=== PATIENT | female | born 1955 | race Caucasian/White ===

== ENCOUNTER 2023-03-09 11:53 | Outpatient (REF) | payer OTHER, SELFPAY ==
[2023-03-09 13:20] LABS: MANUAL DIFF FLAG NO
[2023-03-09 13:42] LABS: Basophils Absolute Auto 0.1 X10*3/uL (0.0-0.2); Basophils Percent Auto 0.8 % (0-2); Eosinophils Absolute Auto 0.3 X10*3/uL (0.0-0.4); Eosinophils Percent Auto 5.1 % (0-4); Hemoglobin 12.8 g/dl (12.0-16.0); Imm Gran Abs Auto 0.02 X10*3/uL (0.00-0.03); Imm Gran Pct Auto 0.3 % (0.0-0.4); Mean Corpuscular Hemoglobin 28.4 pg (27.0-33.0); Mean Corpuscular Volume 88.7 fL (80.0-98.0); Mean Platelet Volume 10.5 fL (9.4-12.3); Monocytes Absolute Auto 0.4 X10*3/uL (0.1-1.2); Neutrophils Absolute Auto 3.1 x10*3/uL (2.0-8.3); Neutrophils Percent Auto 52.8 % (45-73); Platelet Count 374 X10*3/uL (160-400); Red Blood Count 4.51 X10*6/uL (4.20-5.50); Red Cell Distribution Width 13.5 % (11.0-16.0); White Blood Count 5.9 X10*3/uL (4.8-10.8)
[2023-03-09 14:42] LABS: Erythrocyte Sedimentation Rate 5 MM/HR (0-20)
[2023-03-09 14:51] LABS: Alanine Aminotransferase 31 U/L (0-31); Albumin Level 4.4 g/dL (3.5-5.0); Alkaline Phosphatase 57 U/L (39-117); Anion Gap 13 (12-20); Aspartate Amino Transferase 24 U/L (5-31); Bilirubin Total 0.6 mg/dL (0.0-1.0); Blood Urea Nitrogen 20 mg/dL (9-16); Calcium 9.6 mg/dL (8.4-10.2); Carbon Dioxide 23 mmol/L (22-29); Chloride 107 mmol/L (96-108); Estimated Glomerular Filt Rate > 60; Glucose Random 97 mg/dL (60-115); Iron 135 mcg/dL (30-160); Percent Iron Saturation 50 % (15-50); Potassium 4.2 mmol/L (3.3-5.1); Sodium 139 mmol/L (135-145); Total Iron Binding Capacity 272 mcg/dL (228-428); Total Protein 7.2 g/dL (6.5-8.0); Unsaturated Iron Binding 137 ug/dL
[2023-03-09 14:56] LABS: Ferritin 240 ng/mL (10-250); Vitamin D 25-OH Total 65.6 ng/mL (>30)
[2023-03-09 14:58] LABS: Vitamin B12 1252 pg/mL (200-900)
== END 2023-03-09 11:54 | disposition home or self-care (01) ==
LOC: HO.MANLDS 11:53
PROVIDERS: Visit Provider Internal Medicine
DX: R77.8 Other specified abnormalities of plasma proteins (principal); R10.9 Unspecified abdominal pain; E55.9 Vitamin D deficiency, unspecified; E61.1 Iron deficiency
CPT/HCPCS: 36415; 80053; 82306; 82607; 82728; 83540; 85025; 85652; 86140

== ENCOUNTER 2024-05-23 08:26 | Outpatient (REF) | payer OTHER, MEDICARE, SELFPAY ==
--- OUTSIDE RECORDS SUMMARY | 2024-05-23 08:45 | XMS_ITS | Continuity of Care Document ---
Author Organization [facility], [facility] Address [address] [place] [address] Assessment No assessment recorded. Plan of Treatment Reminders Order Date Submit Date Provider Last Modified By Organization Details Last Modified Time Details Appointments FOLLOW UP 15 2024 11:30A M DR CHEN Not available Not available Not available ANNUAL EXAM 2024 09:00A M DR CHEN Not available Not available Not available Lab CRP, high sensitivi ty, serum or plasma 2023 [facility], [address] [place] [address], [id number], 04/18/2024 11:46:45 9p21 chromosom e deletion, FISH, blood or tissue 2023 [facility], [address] [place] [address], [id number], 04/18/2024 11:46:45 lipoprote in-associ ated phospholi pase A2 (pla2), serum 2023 [facility], [address] [place] [address], [id number], 04/18/2024 11:46:45 CMP, serum or plasma 2023 024 [facility], [address] [place] [address], [id number], 04/18/2024 11:46:45 CBC w/ auto diff 2023 [facility], [address] [place] [address], [place], [address], 04/18/2024 11:46:45 lipid panel, blood 2023 [facility], [address] [place] [address], [id number], 04/18/2024 11:46:45 vitamin D, 25-hydrox y, total, serum 2023 [facility], [address] [place] [address], [id number], 04/18/2024 11:46:45 Referral sleep medicine referral 2023 [facility], [address] [place], [address], 05/23/2024 08:41:54 Procedures None recorded. Surgeries None recorded. Imaging bone density 2023 [facility], [address] [place], [address], 05/02/2024 08:11:55 CT, heart, w/o contrast, w/ coronary calcium score 2023 [facility], [address] [place], [address], 04/29/2024 11:06:46 Medication Orders None recorded. Patient TargetsNo targets recorded. Patient Instructions Encounter Date Encounter Id Patient Instructions Last Modified By Organization Details Last Modified Time 04/18/2024 [id number] sleep apnea: car e instructions Not available 04/18/2024 11:44:41 dizziness: care instructions Not available 04/18/2024 11:46:41 Reason for Referral Sleep Medicine Referral for Sleep apnea Referring Physician: Hunter Chen, Internal Medicine, Encounter Date: 04/18/2024 Results Created Date Observation Date Name Description Value Unit Range Abnormal Flag Note LastModifiedBy Organization Detail LastModifiedTime 05/05/20 24 05/05/2024 CT, heart , w/o contr ast, w/ coron elle calci um score No observ ation record ed. [email or web address] [facility] [address], [place], [address], 05/06/2024 09:47:34 Result Notes None recorded. Problems Name Problem SNOMED Code Status Onset Date Resolution Date Notes Provider Name and Address Organization Details Recorded Time Impaired fasting glycemia 712850576 Active 2017 DEBORAH Sood [address] [place], [address], [facility] 8 15:14:06 Serum ferritin above referenc e range 859880695 Active 2022 Hunter Chen DO [address] [place] [address], [phone], [facility] 3 16:04:57 Abdomina l pain 13894813 Active 2022 Hunter Chen, DO [address] [place] [address], [phone], [facility] 3 16:06:34 Vitamin D deficien cy 95923858 Active 2022 Hunter Chen DO [address] [place] [address], [id number], [facility] 3 16:07:10 Lumbar spondylo sis 061792384 Active 2022 Hunter Chen DO [address] [place] [address], [id number], [facility] 3 16:15:11 Weakness of left lower limb Active 2023 Hunter Chen DO [address] [place] [address], [phone], [facility] 4 10:39:38 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 70446140001 4105 Active 2023 Hunter Chen, DO [address] [place], [address], [facility] Internal [facility] 4 22:18:20 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 Catia dickson [facility] 8 16:33:18 Hypochol esterole nicola 08984973 Active 2017 Catia dickson [facility] 8 16:33:27 Acute sinusiti s 76162655 Active 2023 JORDAN LOUIS [address] [place], [address], [facility] 4 12:23:15 Hypercho lesterol emia 25456076 Active 2023 Hunter Chen DO [address] [place] [address], [phone], [facility] 4 11:33:12 Sleep apnea 79756653 Active 2023 Hunter Chen DO [address] [place] [address], [phone], [facility] 4 11:44:00 Dizzines s 701568978 Active 2023 Hunter Chen DO [address] [place] [address], [phone], [facility] 4 11:45:48 Problem Notes None recorded. Procedures Surgical History Date Name Laterality Status Provider Name and Address Organization Details Recorded Time 09/16/19 13 Date of Last Pap Smear completed Catia Dozier [facility] 03/21/2019 08:21:49 Breast Biopsy completed Catia Dozier [facility] 03/21/2019 08:16:53 Cataract Surgery completed Catia Betts [facility] 03/21/2019 08:17:36 laser procedure completed Catia Dozier [facility] 03/21/2019 08:18:17 Tonsillectomy completed Catia Dozier [place] [facility] 03/21/2019 08:18:34 Imaging Results None recorded. Procedure Notes None recorded. Medical Equipment None Reported. Allergies No known drug allergies Medications Name Sig Start Date Stop Date Status Note LastModified by Organization Details LastModified Time cyclobenz aprine 10 mg tablet TAKE 1 TABLET BY MOUTH TWICE A DAY NEEDED 10/17 completed Not Available Not Available Not Available amoxicill in 500 mg capsule 04/04 completed Not Available Not Available Not Available azithromy olamide 250 mg tablet TAKE 2 TABLETS BY MOUTH TODAY, THEN TAKE 1 TABLET DAILY FOR 4 DAYS DIRECTED 04/18 completed Not Available Not Available Not Available hydrocodo ne 5 mg-acetam inophen 325 mg tablet 04/04 completed Not Available Not Available Not Available prednison e 20 mg tablet 03/21 completed Not Available Not Available Not Available aspirin 81 mg tablet,de layed release Take 1 tablet every day by oral route. 07/31 completed Not Available Not Available Not Available oxycodone -acetamin ophen 5 mg-325 mg tablet 09/29 completed Not Available Not Available Not Available prednisol one acetate 1 % eye drops,[facility] pension 08/28 completed Not Available Not Available Not Available Vitamin C 1,000 mg tablet Take 2 tablets every day by oral route. active Not Available Not Available No t Available lorazepam 0.5 mg tablet 04/04 completed Not Available Not Available Not Available benzonata te 100 mg capsule TAKE 1 CAPSULE BY MOUTH 3 TIMES A DAY NEEDED. 04/18 completed Not Available Not Available Not Available amoxicill in 250 mg capsule 09/29 completed Not Available Not Available Not Available lisinopri l 5 mg tablet TAKE 1 TABLET BY MOUTH EVERY DAY 2023 active Not Available Not Available Not Avai lable methylpre dnisolone 4 mg tablets in a dose pack TAKE 6 TABLETS ON DAY 1 DIRECTED ON PACKAGE AND DECREASE BY 1 TAB EACH DAY FOR A TOTAL OF 6 DAYS 04/18 completed Not Available Not Available Not Available diazepam 5 mg tablet TAKE 1 TABLET BY MOUTH 1/2 HOUR PRIOR TO MRI 10/17 completed Not Available Not Available Not Available rosuvasta tin 5 mg tablet Take 1 tablet every day by oral route for 90 days. 03/21 completed Not Available Not Available Not Available chlorhexi dine gluconate 0.12 % mouthwash 09/29 completed Not Available Not Available Not Available magnesium 400 mg 09/29 completed Not Available Not Available Not Available calcium 900 mg qd, magnesiu m, zinc,wit h d 10/15 completed Not Available Not Available Not Available hawthorn qd 09/29 completed Not Available Not Available Not Available multivita min active Melaluca brand Not Available Not Available Not Available Elderberr y drink once a day 10/17 completed Not Available Not Available Not Available GaviLyte- G 236 gram-22.7 4 gram-6.74 gram-5.86 gram oral solution 09/29 completed Not Available Not Available Not Available red yeast rice active Not Available Not Available Not Available Flowflex COVID-19 Antigen Home Test kit 10/17 completed Not Available Not Available Not Available omega 3 1,000 mg-dha 250 mg-epa 750 mg/5 mL oral liquid Take by oral route. active Not Available Not Available No t Available beta-gluc an active Not Available Not Available Not Available Vitals Date Recorded Body height Body mass index (BMI) Body weight Heart rate Oxygen saturation Oxygen saturation in Arterial blood by Pulse oximetry Systolic blood pressure Diastolic blood pressure Provider Name and Address Organization Details Last Updated DateTime 4 162.56 cm 29.4 kg/m2 63036.3 g 78 /min 98 % 98 % 124 mm[Hg] 84 mm[Hg] Jair Hernandez [facility] 4 11:11:45 Social History Question Answer Notes LastModified by Organizat ion Details LastModified Time Tobacco Smoking Status Never Smoker Catia dickson [facility] 08/28/2017 10:12:59 What Was The Date Of Your Most Recent Tobacco Screening? 04/18/2024 [email or web address] Information not available 04/18/2024 Do You Or Have You Ever Used Any Other Forms Of Tobacco Or Nicotine? No [email or web address] Information not available 03/02/2023 Sex: Unknown Functional Status None recorded. Mental Status None recorded. Family History Relationship Description Onset Age of this Age Resolved Age Notes LastModified by Organization Details LastModified Time Unspecified Relation Coronary arterioscler osis Early [email or web address] Not available 2017 16:33:58 Brother Myocardial infarction in his 40's [email or web address] Not available 03/21/2019 08:15:12 Brother Small cell neuroendocri ne carcinoma [place] [email or web address] Not available 10/17/2022 13:22:04 Mother Family history of malignant neoplasm pancre atic [email or web address] Not available 10/17/2022 13:22:04 Mother History of hypertension [email or web address] Not available 10/17/2022 13:22:04 Mother Hypercholest erolemia [email or web address] Not available 2018 08:23:08 Maternal Aunt Family history of malignant neoplasm breast cancer [email or web address] Not available 10/17/2022 13:22:04 Medical History Condition Response Coronary Artery Disease N Gout N Other N Kidney Stones N Blood Diseases N Blood Transfusion N Breast Cancer N COPD N Depression N Lung Disease N Defects or Inherited Disease N Anxiety Disorder N Muscle, Joint, or Bone Problems N Obesity N Vision or Eye Problems N Arthritis N Polyps N Infertility N Mental Disorder N Cancer N Varicosities N Stroke N Endometriosis N Bladder or Kidney Problems N High Cholesterol N Liver Disease N Headaches N Fibromyalgia N Kidney Disease N Allergies/Hayfever N Heart Problems N Hospitalizations N Thyroid Problems N GI Problems N Eating Disorder N Skin Problems N Anemia N MRSA exposure N Constipation N Mental Illness N Diabetes N Ovarian Cancer N Seizures/Epilepsy N Tuberculosis N Congestive Heart Failure (CHF) N Eczema N Abuse/Domestic Violence N Diverticulitis N Asthma N Reflux/GERD N Hepatitis N Heart Disease N Pulmonary Embolism N Hypertension N Chicken Pox N Autism Spectrum Disorder (ASD) N Osteoporosis N Gynecological History Statement/Question Response Date of Last Pap Smear 09/15/2012 Obstetrics History GPAL:G 0 P 0 0 0 0 Immunizations Vaccine Type Date Status Note Provider Nam e and Address Organization Details Recorded Time Tdap 11/15/2015 completed August DEBORAH Sood [address] [place] [address], [phone], [facility] 03/19/2018 15:07:14 Past Encounters Encounter ID Performer Location Encounter Start Date Encounter Closed Date Diagnosis/Indication Diagnosis SNOMED-CT Code Diagnosis ICD10 Code Diagnosis Note [id number] Hunter Chen DO [facility] [address] [address] 04/18/2024 10:44:28 04/18/2024 11:50:26 Active or passive immunization 561413039 Z23 utd Adult heal th examination 491272937 Z00.00 needs w/u Hypercholesterolemia 136 86997 E78.00 Screening for osteoporosis 385257207 Z13.820 Sleep apnea 15822668 G47 .30 Dizziness 647781917 R42 hold lisinopril Health Concerns Section Related Observation LastModified by Organization Detai ls LastModified Time None Recorded Concern Status LastModified by Organization Details LastModified Time None Recorded Payers Encounter Date Sequence Insurance Name Policy Number Policy Dun[place] Covered Member ID [place] Member ID Guarantor Name 04/18/2024 2 [employer] (O) [id number] Dorys Orwat [id number] Dorys Orwat 04/18/2024 1 MEDICARE B-MS: [employer] Dorys A Orwat [id number] Dorys Orwat Notes Date Note Type Note Provider Name a nd Address Organization Details Recorded Time 4 text/html Annual WellnessReported bypatient.Diet and Nutrition:healthy diet Fracture Risk:no history of fractures; no recent explained fracture; no sudden unexplained fractures; no previous musculoskeletal injuries Physical Activity:exercises on a regular basis; recent increase in physical activity; good physical condition Additional Lifestyle Factors:no tobacco use; no alcohol intake; stopped drinking alcohol Depression Risk:never feels sad, empty, or tearful; no loss of interest in activities; no significant changes in weight; no sleep disturbances or insomnia; no agitation; no loss of energy; no feelings of worthlessness or guilt; no thoughts of suicide; no history of depression; no history of mood disorders Hearing:no loss of hearing Vision:no vision problems Hunter Chen, DO [address], [place], [address], [facility] 04/18/2024 11:48:08 OBGyn Episode No OBEpisode recorded.
--- OUTSIDE RECORDS SUMMARY | 2024-05-23 08:45 | XMS_ITS | Data Portability ---
Author Organization [facility] Service Address [address] [place] [address] Assessment Encounter Date Assessment Date Assessment LastModified by Organization Details LastModified Time 03/02/2023 03/02/2023 [id number] [place] [id number] (INVESTMENT STRATEGIST) [facility] MUST MEET 2 OUT OF 3 ELEMENTS: PROBLEMS, DATA OR RISK ELEMENT 1: PROBLEMS ADDRESSED 1 OR MORE CHRONIC ILLNESS WITH EXACERBATION OR 2 OR MORE STABLE CHRONIC ILLNESSES OR 1 UNDIAGNOSED NEW PROBLEM OR 1 ACUTE ILLNESS W/SYMPTOMS OR 1 ACUTE COMPLICATED INJURY ELEMENT 2: DATA MUST MEET 1 OF 3 CATEGORIES CATEGORY 1: REVIEW OF PRIOR EXTERNAL NOTES, REVIEW OF RESULTS, ORDERING OF EACH TEST, ASSESSMENT REQUIRING INDEPENDENT HISTORIAN OR CATEGORY 2: INDEPENDENT INTERPRETATION OF TESTS BY ANOTHER PHYSICIAN OR SPECIALIST OR CATEGORY 3: DISCUSSION OF MGT OR TEST INTERPRETATION W/EXTERNAL PHYSICIAN OR SPECIALIST ELEMENT 3: RISK RISK OF COMPLICATIONS AND/OR MORBIDITY OR MORTALITY OF PATIENT MANAGEMENT PROVIDER MUST THOROUGHLY DOCUMENT EACH ELEMENT THAT IS COVERED Not available 03/02/2023 16:03:06 05/04/2023 05/04/2023 [id number] [place] [id number] (INVESTMENT STRATEGIST) [facility] MUST MEET 2 OUT OF 3 ELEMENTS: PROBLEMS, DATA OR RISK ELEMENT 1: PROBLEMS ADDRESSED 1 OR MORE CHRONIC ILLNESS WITH EXACERBATION OR 2 OR MORE STABLE CHRONIC ILLNESSES OR 1 UNDIAGNOSED NEW PROBLEM OR 1 ACUTE ILLNESS W/SYMPTOMS OR 1 ACUTE COMPLICATED INJURY ELEMENT 2: DATA MUST MEET 1 OF 3 CATEGORIES CATEGORY 1: REVIEW OF PRIOR EXTERNAL NOTES, REVIEW OF RESULTS, ORDERING OF EACH TEST, ASSESSMENT REQUIRING INDEPENDENT HISTORIAN OR CATEGORY 2: INDEPENDENT INTERPRETATION OF TESTS BY ANOTHER PHYSICIAN OR SPECIALIST OR CATEGORY 3: DISCUSSION OF MGT OR TEST INTERPRETATION W/EXTERNAL PHYSICIAN OR SPECIALIST ELEMENT 3: RISK RISK OF COMPLICATIONS AND/OR MORBIDITY OR MORTALITY OF PATIENT MANAGEMENT PROVIDER MUST THOROUGHLY DOCUMENT EACH ELEMENT THAT IS COVERED Not available 05/04/2023 16:18:35 08/03/2023 08/03/2023 [id number] [place] [id number] (INVESTMENT STRATEGIST) [facility] MODERATE MUST MEET 2 OUT OF 3 ELEMENTS: PROBLEMS, DATA OR RISK ELEMENT 1: PROBLEMS ADDRESSED 1 OR MORE CHRONIC ILLNESS WITH EXACERBATION OR 2 OR MORE STABLE CHRONIC ILLNESSES OR 1 UNDIAGNOSED NEW PROBLEM OR 1 ACUTE ILLNESS W/SYMPTOMS OR 1 ACUTE COMPLICATED INJURY ELEMENT 2: DATA MUST MEET 1 OF 3 CATEGORIES CATEGORY 1: REVIEW OF PRIOR EXTERNAL NOTES, REVIEW OF RESULTS, ORDERING OF EACH TEST, ASSESSMENT REQUIRING INDEPENDENT HISTORIAN OR CATEGORY 2: INDEPENDENT INTERPRETATION OF TESTS BY ANOTHER PHYSICIAN OR SPECIALIST OR CATEGORY 3: DISCUSSION OF MGT OR TEST INTERPRETATION W/EXTERNAL PHYSICIAN OR SPECIALIST ELEMENT 3: RISK RISK OF COMPLICATIONS AND/OR MORBIDITY OR MORTALITY OF PATIENT MANAGEMENT PROVIDER MUST THOROUGHLY DOCUMENT EACH ELEMENT THAT IS COVERED Not available 08/03/2023 10:39:08 Plan of Treatment Reminders Order Date Submit Date Provider Last Modified By Organization Details Last Modified Time Details Appointments FOLLOW UP 15 2024 11:30A M DR CHEN Not available Not available Not available ANNUAL EXAM 2024 09:00A M DR CHEN Not available Not available Not available Lab CMP, serum or plasma 2022 023 [facility], [address] [place] [address], [id number], 03/10/2023 18:28:40 ESR (erythroc yte sedimenta tion rate), blood 2022 023 [facility], [address] [place] [address], [id number], 03/02/2023 16:09:34 C reactive protein, QN, serum or plasma 2022 023 [facility], [address] [place] [address], [id number], 03/02/2023 16:09:34 CBC w/ auto diff 2022 023 [facility], [address] [place] [address], [id number], 03/02/2023 16:09:34 vitamin B12, serum 2022 023 [facility], [address] [place] [address], [id number], 03/02/2023 16:09:33 vitamin D, 25-hydrox y, total, serum 2022 023 [facility], [address] [place] [address], [address], 03/02/2023 16:09:34 iron + total iron-bind ing capacity (TIBC), serum 2022 [facility], [address] [place] [address], [id number], 03/02/2023 16:09:33 ferritin, serum or plasma 2022 023 [facility], [address] [place] [address], [address], 03/02/2023 16:09:33 CRP, high sensitivi ty, serum or plasma 2023 [facility], [address] [place] [address], [id number], 04/18/2024 11:46:45 9p21 chromosom e deletion, FISH, blood or tissue 2023 024 [facility], [address] [place] [address], [id number], 04/18/2024 11:46:45 lipoprote in-associ ated phospholi pase A2 (pla2), serum 2023 024 [facility], [address] [place] [address], [id number], 04/18/2024 11:46:45 CMP, serum or plasma 2023 [facility], [address] [place] [address], [place], [address], 04/18/2024 11:46:45 CBC w/ auto diff 2023 [facility], [address] [place] [address], [address], 04/18/2024 11:46:45 lipid panel, blood 2023 [facility], [address] [place] [address], [id number], 04/18/2024 11:46:45 vitamin D, 25-hydrox y, total, serum 2023 [facility], [address] [place] [address], [address], 04/18/2024 11:46:45 Referral sleep medicine referral 2023 [facility], [address] [place], [address], 05/23/2024 08:41:54 Procedures None recorded. Surgeries None recorded. Imaging MRI, lumbar spine, w/o contrast 2023 [email or web address] Not available 08/17/2023 09:00:09 bone density 2023 [facility], [address] [place], [address], 05/02/2024 08:11:55 CT, heart, w/o contrast, w/ coronary calcium score 2023 [facility], [address] [place], [address], 04/29/2024 11:06:46 Medication Orders None recorded. Patient TargetsNo targets recorded. Patient Instructions Encounter Date Encounter Id Patient Instructions Last Modified By Organization Details Last Modified Time 03/02/2023 [id number] abdominal pain: care instructions Not available 03/02/2023 16:08:00 05/04/2023 [id number] prediabetes: car e instructions Not available 05/04/2023 16:20:09 04/18/2024 [id number] sleep apnea: car e instructions Not available 04/18/2024 11:44:41 dizziness: care instructions Not available 04/18/2024 11:46:41 Reason for Referral Sleep Medicine Referral for Sleep apnea Referring Physician: Hunter Chen, Internal Medicine, Encounter Date: 04/18/2024 Results Created Date Observation Date Name Description Value Unit Range Abnormal Flag Note LastModifiedBy Organization Detail LastModifiedTime 05/25/19 24 08/27/2022 MRI, lumba r spine , w/wo contr ast No observ ation record ed. Not Available 2023 10:23:12 05/05/20 24 05/05/2024 CT, heart , w/o contr ast, w/ coron elle calci um score No observ ation record ed. [email or web address] [facility] Internal Medicine [address] [facility] [address], [place], [address], 05/06/2024 09:47:34 Result Notes None recorded. Problems Name Problem SNOMED Code Status Onset Date Resolution Date Notes Provider Name and Address Organization Details Recorded Time Impaired fasting glycemia 016247059 Active 2017 DEBORAH Sood [address] [place], [address], [facility] 8 15:14:06 Serum ferritin above referenc e range 418156776 Active 2022 Hunter Chen DO [address] [place] [address], [address], [facility] 3 16:04:57 Abdomina l pain 96642295 Active 2022 Hunter Chen DO [address] [place] [address], [address], [facility] 3 16:06:34 Vitamin D deficien cy 06887456 Active 2022 Hunter Chen, DO [address] [place] [address], [address], [facility] 3 16:07:10 Lumbar spondylo sis 912932952 Active 2022 Hunter Chen, DO [address] [place] [address], [address], [facility] 3 16:15:11 Weakness of left lower limb Active 2023 Hunter Chen, DO [address] [place] [address], [address], [facility] 4 10:39:38 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 42647529837 4105 Active 2023 Hunter Chen DO [address] [place] [address], [address], [facility] 4 22:18:20 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 Catia dickson [facility] Internal Medicine 8 16:33:18 Hypochol esterole nicola 94955238 Active 2017 Catia dickson [facility] 8 16:33:27 Acute sinusiti s 09483250 Active 2023 JORDAN LOUIS [address] [place] [address], [address], [facility] 4 12:23:15 Hypercho lesterol emia 34796011 Active 2023 Hunter Chen DO [address] [place] [address], [address], [facility] 4 11:33:12 Sleep apnea 46471593 Active 2023 Hunter Chen DO [address] [place] [address], [address], [facility] 4 11:44:00 Dizzines s 543809378 Active 2023 Hunter Chen, DO [address] [facility], [place], [address], [facility] 4 11:45:48 Problem Notes None recorded. Procedures Surgical History Date Name Laterality Status Provider Name and Address Organization Details Recorded Time 09/16/19 13 Date of Last Pap Smear completed [facility] 03/21/2019 08:21:49 Breast Biopsy completed [facility] 03/21/2019 08:16:53 Cataract Surgery completed [facility] 03/21/2019 08:17:36 laser procedure completed [facility] 03/21/2019 08:18:17 Tonsillectomy completed [facility] 03/21/2019 08:18:34 Imaging Results Imaging Date Name Status LastModified by Organiz ation Details LastModified Time 08/27/2022 MRI, lumbar spine, w/wo contrast completed Information not available 08/03/2023 10:23:12 05/05/2024 CT, heart, w/o contrast, w/ coronary calcium score completed [email or web address] [facility] Medicine [address], [place], [address], 05/06/2024 09:47:34 Procedure Notes None recorded. Medical Equipment None [...] and Address Organization Details Last Updated DateTime 3 162.56 cm 29 kg/m2 85644.1 1 g 78 /min 96 % 96 % 140 mm[Hg] 78 mm[Hg] [facility] Internal [facility] 3 13:35:53 Date Recorded Body height Heart rate Oxygen saturation Oxygen saturation in Arterial blood by Pulse oximetry Systolic blood pressure Diastolic blood pressure Provider Name and Address Organization Details Last Updated DateTime 3 162.56 cm 78 /min 97 % 97 % 130 mm[Hg] 68 mm[Hg] [facility] Internal [facility] 3 15:13:08 Date Recorded Body height Body mass index (BMI) Body weight Heart rate Oxygen saturation Oxygen saturation in Arterial blood by Pulse oximetry Systolic blood pressure Diastolic blood pressure Provider Name and Address Organization Details Last Updated DateTime 3 162.56 cm 29.9 kg/m2 79641.0 7 g 75 /min 98 % 98 % 130 mm[Hg] 78 mm[Hg] [facility] 3 15:53:42 Date Recorded Body height Body mass index (BMI) Body weight Heart rate Oxygen saturation Oxygen saturation in Arterial blood by Pulse oximetry Systolic blood pressure Diastolic blood pressure Provider Name and Address Organization Details Last Updated DateTime 4 162.56 cm 29.9 kg/m2 46555.0 7 g 68 /min 98 % 98 % 122 mm[Hg] 68 mm[Hg] [facility] Internal [facility] 4 10:10:56 Date Recorded Body height Body mass index (BMI) Body weight Heart rate Oxygen saturation Oxygen saturation in Arterial blood by Pulse oximetry Systolic blood pressure Diastolic blood pressure Provider Name and Address Organization Details Last Updated DateTime 4 162.56 cm 29.4 kg/m2 47397.3 g 78 /min 98 % 98 % 124 mm[Hg] 84 mm[Hg] Jair Brookfield [facility] Internal Medicine 4 11:11:45 Social History Question Answer Notes LastModified by Organizat ion Details LastModified Time Tobacco Smoking Status Never Smoker Catia Dozier yessi [facility] 08/28/2017 10:12:59 What Was The Date Of Your Most Recent Tobacco Screening? 04/18/2024 [email or web address] Information not available 04/18/2024 Do You Or Have You Ever Used Any Other Forms Of Tobacco Or Nicotine? No [email or web address] Information not available 03/02/2023 Sex: Unknown Functional [...] ne carcinoma histor y of smokin g Not available 10/17/2022 13:22:04 Mother Family history of malignant neoplasm pancre atic [email or web address] Not available 10/17/2022 13:22:04 Mother History of hypertension [email or web address] Not available 10/17/2022 13:22:04 Mother Hypercholest erolemia [email or web address] Not available 2018 08:23:08 Maternal Aunt Family history of malignant neoplasm breast cancer [email or web address] Not available 10/17/2022 13:22:04 Medical History Condition Response Coronary Artery Disease N Gout N Other N Kidney Stones N Blood Diseases N Blood Transfusion N Breast Cancer N COPD N Depression N Lung Disease N Defects or Inherited Disease N Anxiety Disorder N Muscle, Joint, or Bone Problems N Obesity N Vision or Eye Problems N Arthritis N Infertility N Polyps N Mental Disorder N Cancer N Stroke N Varicosities N Endometriosis N Bladder or Kidney Problems N High Cholesterol N Liver Disease N Fibromyalgia N Headaches N Kidney Disease N Allergies/Hayfever N Heart [...] Organization Details Recorded Time Tdap 11/15/2015 completed Catrina GLENYS [address], [address], [facility] 03/19/2018 15:07:14 Past Encounters Encounter ID Performer Location Encounter Start Date Encounter Closed Date Diagnosis/Indication Diagnosis SNOMED-CT Code Diagnosis ICD10 Code Diagnosis Note [id number] [facility] [address] [place] [address] [place] [address] 08/28/2017 09:58:21 08/28/2017 11:30:07 Mixed hyperlipidemia 570800038 E78.2 diet and exercise reinforced and discussed Essential hypertension 54158753 I10 diet and exercise reinforced and discussed Impaired f asting glycemia 620711214 R73.01 diet and exercise reinforced and discussed [id number] Catrina Sood [facility] Internal Medicine [address] [place] [address] [place] [address] 03/19/2018 14:36:11 03/19/2018 15:36:19 Body mass index 25-29 - overweight 598980330 Z68.28 continue healthy diet and exercise work on weight Adult [facility] examination 122542160 Z00.00 Hypocholesterolemia 6133 6008 E78.6 already follows a very low cholestero l/low animal protein/lo w carb diet she does eat a lot of anti inflammato esperanza she has tried fish oil in the past she eats fish she is refusing statins ama have discussed risks benefits for an against has cut back [id number] [facility] [address] [place] [address] [place] [address] 03/21/2019 13:20:06 03/21/2019 14:25:45 Body mass index 25-29 - overweight 023135352 Z68.28 continue healthy diet and exercise work on weight Adult [facility] th examination 970910979 Z00.00 Hypocholesterolemia 6133 6008 E78.6 cholestero l has worsened, would like vap lipid panel test has refused statins in the past Screening for malignant neoplasm of colon 123972452 Z12.11 Essential hypertension 83676109 I10 diet and exercise reinforced and discussed Decreased estrogen level 672162844 E28.39 [id number] JORDAN LOUIS [facility] Internal Medicine [address] [facility] [address] 09/30/2019 10:20:03 09/30/2019 11:39:57 Hypercholesterolemia 12038912 E78.00 levels are coming down, doing better with exercise and diet will recheck in 6 months [id number] JORDAN LOUIS [facility] Internal Medicine [address] [facility],[place] [address] 04/04/2020 13:18:37 04/04/2020 14:25:30 Impaired fasting glycemia 385226352 R73.01 will wait on her on bw to come will have SB call medical records if not in by Thursday will call pt back with results Hypocholesterolemia 6133 6008 E78.6 [place] [id number] JORDAN LOUIS [facility] Internal Medicine [address] [place] [address],[place] [address] 07/31/2020 11:41:23 07/31/2020 12:27:32 Active or passive immunization 503626101 Z23 up to date on vaccinatio ns Adult [facility] examination 929656648 Z00.01 BP fine will continue to monitor Left Achil les tendinitis 1827824854 15885 M76.62 possible achilles tendonitis or plantar fasciitis Essential hypertension 04495984 I10 wants to stop her BP medication , however, her BP medication keeps her BP under control Fatigue 30397337 R53.83 will fu with lab results Screening for cardiovascular system disease 410925439 Z13.6 will fu with lab results [id number] JORDAN LOUIS [facility] Internal Medicine [address] [facility],[place] [address] 10/15/2021 13:22:11 10/15/2021 14:34:58 Active or passive immunization 130931176 Z23 up to date on vaccinatio Adult heal th examination 263395850 Z00.00 BP is finewill hold bone density Family his tory of malignant neoplasm of pancreas 819826388 Z80.0 will fu with pancreas test [id number] JORDAN LOUIS [facility] Internal Medicine [address] [facility] [address] 10/17/2022 13:21:51 10/17/2022 14:18:28 Active or passive immunization 287707924 Z23 up to date on vaccinatio Adult heal th examination 651683288 Z00.00 recheck BP is 100/72 which is more accurate to her average BP at home [id number] Hunter Chen DO [facility] Internal Medicine [address] [facility] [address] 03/02/2023 15:06:17 03/03/2023 11:22:04 Serum ferritin above reference range 682622080 R77.8 Abdominal pain 85281173 R10.9 Vitamin D deficiency 347 55911 E55.9 [id number] Hunter Chen DO [facility] Internal Medicine [address] [facility] [address] 05/04/2023 15:46:48 05/04/2023 16:33:52 Vitamin D deficiency 27684121 E55.9 will cont the vit d Impaired f asting glycemia 025493033 R73.01 current lab [place] ok Lumbar spondylosis 38583 0009 M47.896 will cont to aggressive ly work on her low back and build up the musculatur e [id number] Hunter Chen [facility] Internal Medicine [address] [facility] [address] 08/03/2023 10:03:13 08/03/2023 11:51:41 Hypocholesterolemia 26312514 E78.6 Lumbar spondylosis 33321 0009 M47.896 will cont to aggressive ly work on her low back and build up the musculatur e Weakness o f left lower limb 3910718872 20873 M62.81 in the face of severe lumbar spondylosi s [id number] Hunter Chen DO [facility] Internal Medicine [address] [facility],[place] [address] 04/18/2024 10:44:28 04/18/2024 11:50:26 Active or passive immunization 677910431 Z23 utd Adult heal th examination 841171191 Z00.00 needs w/u Hypercholesterolemia 136 43741 E78.00 Screening for osteoporosis 635176141 Z13.820 Sleep apnea 00773851 G47 .30 Dizziness 288358461 R42 hold lisinopril Health Concerns Section Related Observation LastModified by Organization Detai ls LastModified Time None Recorded Concern Status LastModified by Organization Details LastModified Time None Recorded Advance Directives Directive None Recorded Payers Encounter Date Sequence Insurance Name Policy Number Policy Dunham Covered Member ID Dunham Member ID Guarantor Name 10/17/2022 1 [facility] INDEMNITY PLAN - [employer] [id number] 1 Jarad Masters [place] [id number] Dorys Orwat 03/02/2023 1 [facility] INDEMNITY PLAN - [employer] [id number] 1 Jarad Masters [place] [id number] Dorys [place] 05/04/2023 1 [facility] INDEMNITY PLAN - [employer] [id number] 1 Jarad Sonam [place] [id number] Dorys Or[place] 08/03/2023 2 [employer] - [facility] [id number] Dorys Orwat [id number] Dorys Orwat 04/18/2024 2 [facility] [id number] Dorys Orwat [id number] Dorys Orwat 04/18/2024 1 MEDICARE [place]: [employer] SERVICES Dorys A Orwat [id number] Dorys Orwat Notes Date Note Type Note Provider Name a nd Address Organization Details Recorded Time 3 text/html Annual WellnessReported bypatient.Diet and Nutrition:healthy diet; discussed vitamin and supplement use; discussed portion control; discussed maintaining calcium balance; discussed diet improvement Fracture Risk:no history of fractures; no recent explained fracture; no sudden unexplained fractures; no previous musculoskeletal injuries Physical Activity:exercises on a regular basis; recent increase in physical activity; good physical condition Additional Lifestyle Factors:no tobacco use; drinks alcohol (mild-moderate) Depression Risk:never feels sad, empty, or tearful; no loss of interest in activities; no significant changes in weight; no sleep disturbances or insomnia; no agitation; no loss of energy; no feelings of worthlessness or guilt; no thoughts of suicide; no history of depression; no history of mood disorders Hearing:no loss of hearing Vision:no vision problems; has a fu with eye doctor next week discussed bone scan; reason for old fractures with her rib and lumbar spineold injuries to correlate those to areas the patient reports that she is doing wellsees a 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 reviewed her BW which looked goodcholesterol is done from last visit JORDAN LOUIS [address] [place], [address], [facility] Internal Medicine 10/17/2022 14:16:48 3 text/html here for pushpa [facility] some stomach issues since thenws found to have a sl elevated ferritin at 300 +then had stool for O&P and 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 was treated with supp ad also a variation of her diet Hunter Chen, [address] [place], [address], [facility] Medicine 03/02/2023 16:10:05 3 text/html here for sharifa and we discussed her MRI rport in detailshe has a lot of spondylosis and arthritic changes no evid of disc ds with neural foraminal encroachmentno spinal stenosisreviewed lab in detail Hunter Chen, DO [address] [place], [address], [facility] 05/04/2023 16:20:40 4 text/html relates that she i s having a hard time with her back pain and states this is the same low back pain she has had but has been getting worsepain goes down her left lateral thigh but not all the way to kneeno numbness only pain sometimes she has a good day where it is not very noticeable Hunter Chen DO [address] [place], [address], [facility] Medicine 08/03/2023 10:43:00 4 text/html Annual WellnessReported bypatient.Diet and Nutrition:healthy [...] loss of hearing Vision:no vision problems Hunter Chen DO [address] [place], [address], [facility] Medicine 04/18/2024 11:48:08 OBGyn Episode No OBEpisode recorded.
--- OUTSIDE RECORDS SUMMARY | 2024-05-23 08:45 | XMS_ITS | Continuity of Care Document ---
Author Organization [facility] RADIOLOGY [facility] [place] IMAGING [facility] [place] Address [address] [facility] [address] [place] [address]- Care Team Providers Care [employer] Operator Name Role Phone Hunter Cota DO A Primary Care Physician [phone] Encounter 05/02/24 - 05/09/24 [facility] RADIOLOGY AND IMAGING [address], [address] [place] [address]- Attending Physician: Hunter Cota DO Admitting Physician: Hunter Cota DO A Referring Physician: Hunter Cota DO Encounter Type: OutPatient One Time Allergies, Adverse Reactions, Alerts Substance Criticality Severity Reaction Reaction Severity Status Other Environmental Allergy Active Egg Allergy Unable to assess criticality Intermittent GI Upset Active Immunizations Given and Recorded Vaccine Date Status Refusal Reason influenza virus vaccine, inactivated 1 06/29/19 Gi yamel 1Result Comment: Handled getting vaccine well Medications isagenix health pack isagenix health pack, Refills 0, Maintenance, 10/26/15 8:58:50 AM EDT, Compound Start Date: 10/26/15 Status: Ordered Repeat number: 1 lisinopril 5 mg oral tablet 5 mg, 1, tablet, By Mouth, Daily, Refills 0, Maintenance, 06/29/19 1:25:00 PM EST Start Date: 06/29/19 Status: Ordered Repeat number: 1 Mushroom Supplement Mushroom Supplement, Refills 0, Maintenance, 06/23/22 10:08:00 AM EST, Supply Start Date: 06/23/22 Status: Ordered Repeat number: 1 Red Yeast Rice = 1,200 mg, By Mouth, Daily, 0 Refills, Maintenance, 06/29/19 1:25:00 PM EST Start Date: 06/29/19 Status: Ordered Repeat number: 1 Problem List Condition Confirmation Course Effective Dates Status H ealth Status Informant Elevated blood-pressure reading without diagnosis of hypertension Confirmed Active Left lower quadrant pain Confirmed Active Urinary incontinence, mixed Confirmed Active Encounter for well woman exam with routine gynecological exam Confirmed Active Fibroid uterus Confirmed Active Results Radiology Reports * Exam Date Time Procedure Performing Provider Status 05/02/24 2:[address] Heart W/O Dye Mele Eval Eliseo Burger foreign; Auth (Verified) Notes: (CT Heart W/O Dye Mele Eval) Reason For Exam: E78.0 PURE HYPERCHOLESTEROLEMIA RESULT: CT Heart W/O Dye Mele Eval CT Heart W/O Dye Mele Eval INDICATION: Reason: E78.0 PURE HYPERCHOLESTEROLEMIA; Clinical Question(s): Other:. Female of age 68years, race White COMPARISON: None TECHNIQUE: Coronary artery Calcium Scoring. After a localizing office runner image was obtained, an ECG-gated noncontrast exam was obtained of the heart in late diastole. The region of interest was limited to the heart in order to optimize image quality. Weight-based protocol using automatic tube modulation was used to optimize exposure parameters. A Vubiquity 64 scanner was used, with Agatston scoring performed using imageloop) web-based software. This procedure is not being performed on thispatient for preoperative evaluation for low-risk surgery within 30 days. CTDIvol Body: 7.71 mGy, DLP Body: 116 mGy*cm. FINDINGS: Coronary Calcium Scoring Summary: Left Main: Score 0. LAD: Score 34.9. Circumflex: Score 0.8. Right: Score 0. TOTAL: Score 35.7. Non-coronary Findings: 9 mm bleb left lower lobe. IMPRESSION: The Agatston coronary calcium score is 35.7. The Multi-Ethnic Study of Atherosclerosis (MARTIN) trial on-line calculator can be used to determine the probability of having coronary calcification and the calcium score percentile for subjects basedon age, gender and race/ethnicity who are free of clinical cardiovascular disease and treated diabetes: http://www.martin-nhlbi.org/Calcium/input.aspx Within this cohort, the probability of having coronary calcification is 49 %. The observed calcium score is at the 68th percentile. WSN: [id number] Ordering Physician: Hunter Cota DO Dictated By: Pardeep Robbins MD Dictated Date/Time: 05/05/24 7:57 pm Reviewed By: Pardeep Robbins MD Signed By: Pardeep Robbins MD Signed Date/Time: 05/05/24 7:57 pm Transcribed By: JACKIE Transcribed Date/Time: 05/05/24 7:54 pm Social History Social History Type Response Smoking Status Never smoker entered on: 10/07/13 Sex Sex Representation Female (finding) Patient Care team information Care Team Personnel Name: Hunter Cota DO Position: Reference Physician Member Role: PCP Address: [address] [place] [address] Internal Medicine [address] Telecom: Care Team Related Persons Name: JENNA STRATTON Insurance Providers Guarantor name: BERONICA CROOKJODI Health Plan Information #: 2 Payer: [facility] Member Number: [id number] Policy Number: NA Group Number: NA Health Plan Information #: 1 Payer: [employer]: [employer] Member Number: [id number] Policy Number: NA Group Number: NA
[2024-05-23 11:19] LABS: MANUAL DIFF FLAG NO
[2024-05-23 11:59] LABS: Basophils Absolute Auto 0.1 X10*3/uL (0.0-0.2); Basophils Percent Auto 1.4 % (0-2); Eosinophils Absolute Auto 0.4 X10*3/uL (0.0-0.4); Eosinophils Percent Auto 6.8 % (0-4); Hematocrit 42.7 % (37.0-47.0); Hemoglobin 13.6 g/dl (12.0-16.0); Imm Gran Abs Auto 0.02 X10*3/uL (0.00-0.03); Imm Gran Pct Auto 0.4 % (0.0-0.4); Lymphocytes Absolute Auto 1.7 X10*3/uL (1.2-4.9); Lymphocytes Percent Auto 33.5 % (20-40); Mean Corpuscular HGB Conc 31.9 g/dl (31.0-35.0); Mean Corpuscular Hemoglobin 28.5 pg (27.0-33.0); Mean Corpuscular Volume 89.3 fL (80.0-98.0); Mean Platelet Volume 10.4 fL (9.4-12.3); Monocytes Absolute Auto 0.4 X10*3/uL (0.1-1.2); Monocytes Percent Auto 6.8 % (2-11); Neutrophils Absolute Auto 2.7 x10*3/uL (2.0-8.3); Neutrophils Percent Auto 51.1 % (45-73); Platelet Count 379 X10*3/uL (160-400); Red Blood Count 4.78 X10*6/uL (4.20-5.50); Red Cell Distribution Width 13.8 % (11.0-16.0); White Blood Count 5.2 X10*3/uL (4.8-10.8)
[2024-05-23 12:24] LABS: Troponin-I High Sensitivity < 2.7 ng/L (<3.5-17.0)
[2024-05-23 13:21] LABS: Alanine Aminotransferase 48 U/L (0-31); Albumin Level 4.4 g/dL (3.5-5.0); Alkaline Phosphatase 65 U/L (39-117); Anion Gap 11 (12-20); Aspartate Amino Transferase 28 U/L (5-31); Bilirubin Total 0.4 mg/dL (0.0-1.0); Blood Urea Nitrogen 17 mg/dL (9-16); C Reactive Protein 0.13 mg/dL (< or = 0.50); Calcium 9.7 mg/dL (8.4-10.2); Carbon Dioxide 26 mmol/L (22-29); Chloride 110 mmol/L (96-108); Cholesterol 265 mg/dL (<200); Estimated Glomerular Filt Rate > 60; Glucose Random 103 mg/dL (60-115); HDL Cholesterol 64 mg/dL (>40); LDL Cholesterol Calculated 170 mg/dL (<100); Potassium 3.9 mmol/L (3.3-5.1); Sodium 143 mmol/L (135-145); Total Protein 7.2 g/dL (6.5-8.0); Triglycerides 159 mg/dL (<150); Vitamin D 25-OH Total 89.2 ng/mL (>30)
[2024-05-26 05:29] LABS: Lipoprotein A <10 nmol/L (<75)
[2024-05-28 23:09] LABS: Phospholipase A2 IgG ELISA <4 RU/mL; Phospholipase A2 IgG IFA NEGATIVE (NEGATIVE)
== END 2024-05-23 08:27 | disposition home or self-care (01) ==
LOC: HO.WFDLDS 08:26
PROVIDERS: Visit Provider Internal Medicine
DX: Z00.00 Encounter for general adult medical examination without abnormal findings (principal); E78.00 Pure hypercholesterolemia, unspecified
CPT/HCPCS: 36415; 80053; 80061; 82306; 83520; 83695; 84484; 85025; 86140; 86255

== ENCOUNTER 2025-02-17 11:54 | Outpatient (REF) | payer MEDICARE, OTHER, SELFPAY ==
--- OUTSIDE RECORDS SUMMARY | 2025-02-17 12:54 | XMS_ITS | Data Portability ---
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) [facility] MUST MEET 2 OUT OF 3 [...] COVERED Not available 05/04/2023 16:18:35 08/03/2023 08/03/2023 [id number] [place] [address] (SADDLE TREE STITCHER) [facility] MODERATE MUST MEET 2 OUT OF [...] THAT IS COVERED Not available 08/03/2023 10:39:08 06/13/2024 06/13/2024 [id number] [place] [id number] (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 TREE STITCHER) [facility] MODERATE MUST MEET 2 OUT OF [...] EACH ELEMENT THAT IS COVERED Not available 06/13/2024 12:00:46 Plan of Treatment Reminders Order Date Submit Date Provider Last Modified By Organization Details Last Modified Time Details Appointments MEDICARE ANNUAL WELLNESS 2024 09:00A M DR CHEN Not available Not available Not available Lab CRP, high sensitivi ty, serum or plasma 2023 024 [facility], [address] [place] [address], [place], [address], 04/18/2024 11:46:45 9p21 chromosom e deletion, FISH, blood or tissue 2023 024 [facility], [address] [place] [address], [place], [address], 04/18/2024 11:46:45 lipoprote in-associ ated phospholi pase A2 (pla2), serum 2023 024 [facility], [address] [place] [address], [id number], 05/26/2024 12:58:26 CMP, serum or plasma 2023 024 [facility], [address] [place] [address], [id number], 05/24/2024 13:15:27 CBC w/ auto diff 2023 024 [facility], [address] [place] [address], [address], 05/24/2024 13:15:27 lipid panel, blood 2023 024 [facility], [address] [place] [address], [address], 05/24/2024 13:15:27 vitamin D, 25-hydrox y, total, serum 2023 024 [facility], [address] [place] [address], [address], 04/18/2024 11:46:45 CMP, serum or plasma 2022 023 [facility], [address] [place] [address], [id number], 03/10/2023 18:28:40 ESR (erythroc yte sedimenta tion rate), blood 2022 023 [facility], [address] [place] [address], [address], 03/02/2023 16:09:34 C reactive protein, QN, serum or plasma 2022 023 [facility], [address] [place] [address], [address], 03/02/2023 16:09:34 CBC w/ auto diff 2022 023 [facility], [address] [place] [address], [address], 03/02/2023 16:09:34 vitamin B12, serum 2022 023 [facility], [address] [place] [address], [address], 03/02/2023 16:09:33 vitamin D, 25-hydrox y, total, serum 2022 023 [facility], [address] [place] [address], [address], 03/02/2023 16:09:34 iron + total iron-bind ing capacity (TIBC), serum 2022 023 [facility], [address] [place] [address], [address], 03/02/2023 16:09:33 ferritin, serum or plasma 2022 023 [facility], [address] [place] [address], [address], 03/02/2023 16:09:33 Referral sleep medicine referral 2023 024 [facility], [address] [place], [address], 05/23/2024 09:11:24 Procedures None recorded. Surgeries None recorded. Imaging bone density 2023 024 [facility], [address] [place], [address], 05/02/2024 08:11:55 CT, heart, w/o contrast, w/ coronary calcium score 2023 024 [email or web address], [address] [place], [address], 04/29/2024 11:06:46 MRI, lumbar spine, w/o contrast 2023 024 [email or web address] Not available 08/17/2023 09:00:09 Medication Orders None recorded. Patient TargetsNo targets recorded. Patient Instructions Encounter Date Encounter Id Patient Instructions Last Modified By Organization Details Last Modified Time 03/02/2023 [id number] abdominal pain: care instructions Not available 03/02/2023 16:08:00 05/04/2023 [id number] prediabetes: car e instructions Not available 05/04/2023 16:20:09 04/18/2024 [id number] sleep apnea: car e instructions Not available [...] score No observ ation record ed. [email or web address] [facility] [address] [facility] [address], [place], [address], 05/06/2024 09:47:34 09/09/19 25 08/18/2024 home sleep study No observ ation record ed. [address], [address], 09/15/2024 22:59:26 09/23/19 25 09/13/2024 bone densi ty No observ ation record ed. [email or web address] Not Available 09/27 08:32:58 Result Notes None recorded. 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 Catia dickson [facility] 8 16:33:18 Hypochol esterole nicola 11067128 Active 2017 Catia dickson [facility] 8 16:33:27 Impaired fasting glycemia 722773834 Active 2017 DEBORAH Sood [address] [place], [address], [facility] 8 15:14:06 Serum ferritin above referenc e range 279600301 Active 2022 Hunter Chen, DO [address] [place] [address], [address], [facility] 3 16:04:57 Abdomina l pain 34789121 Active 2022 Hunter Chen DO [address] [place] [address], [address], [facility] 3 16:06:34 Vitamin D deficien cy 32372243 Active 2022 Hunter Chen, DO [address] [place] [address], [address], [facility] 3 16:07:10 Lumbar spondylo sis 467753548 Active 2022 Hunter Chen DO [address] [place] [address], [address], [facility] 3 16:15:11 Weakness of left lower limb Active 2023 Hunter Chen DO [address] [place] [address], [address], [facility] 4 10:39:38 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 43983704606 4105 Active 2023 Hunter Chen, DO [address] [place] [address], [address], [facility] 4 22:18:20 Acute sinusiti s 14982631 Active 2023 JORDAN LOUIS [address] [place] [address], [address], [facility] 4 12:23:15 Hypercho lesterol emia 97694893 Active 2023 Hunter Chen, DO [address] [place] [address], [address], [facility] 4 11:33:12 Sleep apnea 53022087 Active 2023 Hunter Chen DO [address] [place] [address], [address], [facility] 4 11:44:00 Dizzines s 360870221 Active 2023 Hunter Chen DO [address] [place] [address], [address], [facility] 4 11:45:48 Pain of hip region 73480781 Active 2024 Hunter Chen DO [address] [place] [address], [address], [facility] 5 21:18:36 Obstruct gia sleep apnea syndrome 16398535 Active 2024 Hunter Chen DO [address] [place] [address], [address], [facility] 5 22:23:09 Secondar y dysmenor lino 51171924 Active 2024 JORDAN LOUIS [address] [place] [address], [address], [facility] 5 15:36:50 Problem Notes None recorded. Procedures Surgical History Date Name Laterality Status Provider Name and Address Organization Details Recorded Time 09/16/19 13 Date of Last Pap Smear completed [facility] 03/21/2019 08:21:49 Breast Biopsy completed [facility] 03/21/2019 08:16:53 Cataract Surgery completed [facility] 03/21/2019 08:17:36 laser procedure completed [facility] 03/21/2019 08:18:17 Tonsillectomy completed [facility] 03/21/2019 08:18:34 Imaging Results None recorded. Procedure [...] TAKE 1 TABLET BY MOUTH EVERY DAY 06/13 completed Not Available Not Available Not Available methylpre dnisolone 4 mg tablets in a [...] in Arterial blood by Pulse oximetry Systolic And Diastolic Provider Name and Address Organization Details Last Updated DateTime 5 162.56 cm 29.5 kg/m2 52168.8 9 g 72 /min 96 % 96 % 128/78 mm[Hg] [facility] 5 11:38:14 Date Recorded Body height Body mass index (BMI) Body weight Heart rate Oxygen saturation Oxygen saturation in Arterial blood by Pulse oximetry Systolic And Diastolic Provider Name and Address Organization Details Last Updated DateTime 4 162.56 cm 29.9 kg/m2 60766.0 7 g 68 /min 98 % 98 % 122/68 mm[Hg] Danielle Deshaun [facility] 4 10:10:56 Date Recorded Body height Heart rate Oxygen saturation Oxygen saturation in Arterial blood by Pulse oximetry Systolic And Diastolic Provider Name and Address Organization Details Last Updated DateTime 3 162.56 cm 78 /min 97 % 97 % 130/68 mm[Hg] [facility] 3 15:13:08 Date Recorded Body height Body mass index (BMI) Body weight Heart rate Oxygen saturation Oxygen saturation in Arterial blood by Pulse oximetry Systolic And Diastolic Provider Name and Address Organization Details Last Updated DateTime 4 162.56 cm 29.4 kg/m2 45704.3 g 78 /min 98 % 98 % 124/84 mm[Hg] Jair Hernandez [facility] 4 11:11:45 Date Recorded Body height Body mass index (BMI) Body weight Heart rate Oxygen saturation Oxygen saturation in Arterial blood by Pulse oximetry Systolic And Diastolic Provider Name and Address Organization Details Last Updated DateTime 3 162.56 cm 29.9 kg/m2 90435.0 7 g 75 /min 98 % 98 % 130/78 mm[Hg] [facility] 3 15:53:42 Social History Question Answer Notes LastModified by Organizat ion Details LastModified Time Tobacco Smoking Status Never Smoker Catia dickson [facility] 08/28/2017 10:12:59 What Was The Date Of Your Most Recent Tobacco Screening? 06/13/2024 [email or web address] Information not available 06/13/2024 Sex: Unknown Functional Status Question Answer Note LastModified by Organization D etails LastModified Time Do you or have you ever used any other forms of tobacco or nicotine? No [email or web address] Information not available 03/02/2023 Mental Status None recorded. Family History Relationship Description Onset Age of this Age Resolved Age Notes LastModified by Organization Details LastModified Time Unspecified Relation Coronary arterioscler osis Early [email or web address] Not available 2017 16:33:58 Brother Myocardial infarction in his 40's [email or web address] Not available 03/21/2019 08:15:12 Brother Small cell neuroendocri ne carcinoma histor y of smokin g [email or web address] Not available 10/17/2022 13:22:04 Mother Family history of malignant neoplasm pancre atic [email or web address] Not available 10/17/2022 13:22:04 Mother History of hypertension [email or web address] Not available 10/17/2022 13:22:04 Mother Hypercholest erolemia sbucko Not available 2018 08:23:08 Maternal Aunt Family history of malignant neoplasm breast cancer Not available 10/17/2022 13:22:04 Medical History Condition [...] Time Tdap 11/15/2015 completed August DEBORAH Sood [address] [place] [address], [address], [facility] 03/19/2018 15:07:14 Past Encounters Encounter ID Performer Location Encounter Start Date Encounter Closed Date Diagnosis/Indication Diagnosis SNOMED-CT Code Diagnosis ICD10 Code Diagnosis IMO Codes Diagnosis Note [id number] DO [facility] [address] [facility],[place] [address] 08/28/2017 09:58:21 08/28/2017 11:30:07 Mixed hyperlipidemia 664037767 E78.2 diet and exercise reinforced and discussed Essential hypertension 69200410 I10 diet and exercise reinforced and discussed Impaired f asting glycemia 888026110 R73.01 diet and exercise reinforced and discussed [id number] [facility] [address] [facility],[place] [address] 03/19/2018 14:36:11 03/19/2018 15:36:19 Body mass index 25-29 - overweight 796844406 Z68.28 continue healthy diet and exercise work on weight Adult heal th examination 058172555 Z00.00 Hypocholesterolemia 6133 6008 E78.6 already follows a very low cholestero l/low animal protein/lo w carb diet she does eat a lot of anti inflammato esperanza she has tried fish oil in the past she eats fish she is refusing statins ama have discussed risks benefits for an against has cut back [id number] [facility] [address] [facility],[place] [address] 03/21/2019 13:20:06 03/21/2019 14:25:45 Body mass index 25-29 - overweight 873125568 Z68.28 continue healthy diet and exercise work on weight Adult heal th examination 120078803 Z00.00 Hypocholesterolemia 6133 6008 E78.6 cholestero l has worsened, would like vap lipid panel test has refused statins in the past Screening for malignant neoplasm of colon 132989756 Z12.11 Essential hypertension 95716511 I10 diet and exercise reinforced and discussed Decreased estrogen level 713352817 E28.[id number] [facility] [address] [facility] [address] 09/30/2019 10:20:03 09/30/2019 11:39:57 Hypercholesterolemia 68530968 E78.00 levels are coming down, doing better with exercise and diet will recheck in 6 months [id number] Hunter Chen DO [facility] [address] [facility] [place] [address] 04/04/2020 13:18:37 04/04/2020 14:25:30 Impaired fasting glycemia 724652441 R73.01 will wait on her on bw to come will have SB call medical records if not in by Thursday will call pt back with results Hypocholesterolemia 6133 6008 E78.6 [place] [id number] Hunter Chen [facility] [address] [facility] [address] [address] 07/31/2020 11:41:23 07/31/2020 12:27:32 Active or passive immunization 515570072 Z23 up to date on vaccinatio Adult [facility] examination 397132050 Z00.01 BP fine will continue to monitor Left Achil les tendinitis 5652958104 94516 M76.62 possible achilles tendonitis or plantar fasciitis Essential hypertension 03771518 I10 wants to stop her BP medication , however, her BP medication keeps her BP under control Fatigue 85894536 R53.83 will fu with lab results Screening for cardiovascular system disease 669112889 Z13.6 will fu with lab results [id number] Hunter Chen [facility] [address] [facility], [place] [address] 10/15/2021 13:22:11 10/15/2021 14:34:58 Active or passive immunization 317459721 Z23 up to date on vaccinatio [facility] examination 800714183 Z00.00 BP is [facility] bone density Family his tory of malignant neoplasm of pancreas 463343502 Z80.0 will fu with pancreas test [id number] Hunter Chen [facility] [address] [facility] [address],[place] [address] 10/17/2022 13:21:51 10/17/2022 14:18:28 Active or passive immunization 907949726 Z23 up to date on vaccinatio [facility] examination 153717301 Z00.00 recheck BP is 100/72 which is more accurate to her average BP at home [id number] Hunter Chen [facility] [address] [facility], [place] [address] 03/02/2023 15:06:17 03/03/2023 11:22:04 Serum ferritin above reference range 109455487 R77.8 Abdominal pain 51722175 R10.9 Vitamin D deficiency 347 49502 E55.9 [id number] Hunter Chen [facility] [address] [facility], [place] [address] 05/04/2023 15:46:48 05/04/2023 16:33:52 Vitamin D deficiency 47291049 E55.9 will cont the vit d Impaired f asting glycemia 374559296 R73.01 current lab is ok Lumbar spondylosis 62090 0009 M47.896 will cont to aggressive ly work on her low back and build up the musculatur e [id number] Hunter Chen [facility] [address] [facility], [place] [address] 08/03/2023 10:03:13 08/03/2023 11:51:41 Hypocholesterolemia 64862517 E78.6 Lumbar spondylosis 45794 0009 M47.896 will cont to aggressive ly work on her low back and build up the musculatur e Weakness o f left lower limb 1776339942 82394 M62.81 in the face of severe lumbar spondylosi s [id number] Hunter Chen [facility] [address] [facility] [address] 04/18/2024 10:44:28 04/18/2024 11:50:26 Active or passive immunization 592839943 Z23 utd Adult heal th examination 558451649 Z00.00 needs w/u Hypercholesterolemia 136 73411 E78.00 Screening for osteoporosis 175612597 Z13.820 Sleep apnea 48348667 G47 .30 Dizziness 295878571 R42 hold lisinopril [id number] Hunter Chen [facility] [address] [facility], [place] [address] 06/13/2024 11:25:46 06/13/2024 12:05:46 [facility] 95191102 E78.00 here for amanda doing much better reviewed lab i detail Health Concerns Section Related Observation LastModified by Organization Tulio ls LastModified Time None Recorded Concern Status LastModified by Organization Details LastModified Time None Recorded Advance Directives Directive None Recorded Payers Insurance Date Sequence Insurance Name Policy Number Policy Dunham Covered Member ID Dunham Member ID Guarantor Name 04/26/2024 2 [employer] - PH[employer] (PPO) [id number] Dorys Orwat [id number] Dorys Orwat 06/10/2024 1 MEDICARE B-[place]: [facility] [employer] Dorys A Orwat [id number] Dorys Orwat 08/03/2023 1 [facility] INDEMNITY PLAN - UNICARE [id number] Jarad Masters Orwat [id number] Dorys Orwat 06/13/2024 2 [employer] - [employer] INDEMNITY PLAN (MEDICARE SUPPLEMENT) [id number] Dorys Orwat [id number] Dorys Orwat 04/26/2024 3 [facility] Dorys Orwat [id number] Dorys Orwat Notes Date Note Type Note Provider Name a nd Address Organization Details Recorded Time 3 text/html ROS as noted in the HPI here for pushpa covid in october some stomach issues since thenws found to have a sl elevated ferritin at 300 +then had stool for O&P and 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 was treated with supp ad also a variation of her diet Hunter Chen, [address] [place], [address], [facility] 03/02/2023 16:10:05 3 text/html ROS as noted in the HPI here for sharifa and we discussed her MRI rport in detailshe has a lot of spondylosis and arthritic changes no evid of disc ds with neural foraminal encroachmentno spinal stenosisreviewed lab in detail Huntre Chen DO [address] [place], [address], [facility] 05/04/2023 16:20:40 4 text/html ROS as noted in the HPI relates that she i s having a hard time with her back pain and states this is the same low back pain she has had but has been getting worsepain goes down her left lateral thigh but not all the way to kneeno numbness only pain sometimes she has a good day where it is not very noticeable Hunter LairdRosaura Chen DO [address] [place], [address], [facility] 08/03/2023 10:43:00 4 text/html Annual WellnessReported by PatientSocial/Behavio ral HistoryFor diet and nutrition, patient reportshealthy diet. For fracture risk, patient reportsno history of fractures,no recent explained fracture,no sudden unexplained fractures, andno previous musculoskeletal injuries. For physical activity, patient reportsexercises on a regular basis,recent increase in physical activity, andgood physical condition. For additional lifestyle factors, patient reportsno tobacco use,no alcohol intake, andstopped drinking alcohol.Mental Status:For depression risk, patient reportsnever feels sad, empty, or tearful,no loss of interest in activities,no significant changes in weight,no sleep disturbances or insomnia,no agitation,no loss of energy,no feelings of worthlessness or guilt,no thoughts of suicide,no history of depression, andno history of mood disorders.Functional AbilityFor hearing, patient reportsno loss of hearing. For vision, patient reportsno vision problems.ROS as noted in the HPI Hunter Karri Chen DO [address] [place] [address], [address], [facility] 04/18/2024 11:48:08 5 text/html ROS as noted in the HPI here for rechk and is dong okvery active and relates that Hunter LairdRosaura Chen DO [address] [place] [address], [address], [facility] 06/13/2024 12:03:37 OBGyn Episode No OBEpisode recorded.
--- OUTSIDE RECORDS SUMMARY | 2025-02-17 12:54 | XMS_ITS | Encounter Summary ---
Author Organization [facility] Address [address] [place] [address] Phone Care Team Providers Care Ticker Maintainer Name Role Phone Hunter Cota DO Unavailable Estefania Hughes MD Unavailable [phone] Kathy Loya MD Unavailable [phone] Lupe Anne NP Unavailable [phone] Hunter Cota DO Primary Care Provider [phone] Reason for Referral * Physical Therapy (Routine) - Closed Specialty Diagnoses / Procedures Referred By Vernon meraz Referred To Contact Physical Therapy Diagnoses Encounter for rehabilitation Logan Tobin MD Phone: tel: fax: [facility] [address] [place] [address] Phone: tel: Referral ID Status Reason Start Date Expiration Date Visits Re quested Visits Authorized [id number] Closed 01/18/2019 07/17/2019 16 16 Encounter Details Date Type Department Care Team (Late st Contact Info) Description 01/10/2019 Transcribe Orders [facility] [address] [place] [address] Hunter Cota DO [address] [facility] [place] [address] Encounter for rehabilitation (Primary Dx) Social History Tobacco Use Types Packs/Day Years Used Date Smoking Tobacco: Never Assessed Comments Unknown Sex and Gender Information Value Date Recorded Sex Assigned at Not on file Legal Sex Female 9:51 PM EDT Gender Identity Not on file Sexual Orientation Not on file documented as of this encounter Plan of Treatment Upcoming Encounters Date Type Department Care Team (Late st Contact Info) Description 07/20/2025 3:00 PM EST Office Visit [facility] [address] [place] [address] Jesica Clement MD [address] [address] [email or web address] Scheduled Referrals Name Type Priority Associated Diagnoses Orde r Schedule Ambulatory referral to [facility] Physical Therapy Outpatient Referral Routine Encounter for rehabilitation Ordered: 01/10/2019 documented as of this encounter Visit Diagnoses Diagnosis Encounter for rehabilitation- Primary documented in this encounter Additional Health Concerns Infection Onset Date Last Indicated Resolved Time CoV-Risk 01/01/2024 01/01/2024 01/12/2024 1:22 AM EDT documented as of this encounter Care Teams Ticker Maintainer Relationship Specialty Start Date End Date Hunter Cota DO PCP - General Internal Medicine 01/10/19 Hunter Cota DO Historical LMR Provider 03/08/17 Estefania Hughes MD [address] [address] Historical LMR Provider 03/08/17 Kathy Loya MD [address] [place] [address] Historical LMR Provider 03/08/17 2 Lupe Anne NP [address] [place] [address] Historical LMR Provider 03/08/17 2 documented as of this encounter Additional Source Comments The information contained in this document represents components of the legal health record. It is not the complete legal health record.[facility]
--- OUTSIDE RECORDS SUMMARY | 2025-02-17 12:54 | XMS_ITS | Encounter Summary ---
Author Organization [facility] Address [address] [place] [address] Phone Care Team Providers Care Server Support Technician Name Role Phone Hunter Cota DO Unavailable Estefania Hughes MD Unavailable [phone] Kathy Loya MD Unavailable + [phone] Lupe Anne NP Unavailable [phone] Hunter Cota DO Primary Care Provider [phone] Encounter Details Date Type Department Care Team (Late st Contact Info) Description 09/29/2018 Ancillary Orders Virtual Department [address] [place] [address] Hunter Cota DO 179 [facility] [place] [address] Breast screening Social History Tobacco Use Types Packs/Day Years Used Date Smoking Tobacco: Never Assessed Comments Unknown Sex and Gender Information Value Date Recorded Sex Assigned at Not on file Legal Sex Female 9:51 PM EDT Gender Identity Not on file Sexual Orientation Not on file documented as of this encounter Plan of Treatment Upcoming Encounters Date Type Department Care Team (Late Contact Info) Description 07/20/2025 3:00 PM EST Office Visit [facility] [address] [place] [address] Jesica Clement MD [address] [address] documented as of this encounter Visit Diagnoses Diagnosis Breast screening Breast screening, unspecified documented in this encounter Additional Health Concerns Infection Onset Date Last Indicated Resolved Time CoV-Risk 01/01/2024 01/01/2024 01/12/2024 1:22 AM EDT documented as of this encounter Care Teams Server Support Technician Relationship Specialty Start Date End Date Hunter Cota DO PCP - General Internal Medicine 01/10/19 Hunter Cota DO Historical LMR Provider 03/08/17 Estefania Hughes MD [address] [place] [address] [email or web address] Historical LMR Provider 03/08/17 Kathy Loya MD [address] [place] [phone] Historical LMR Provider 03/08/17 2 Lupe Anne NP [address] [place] [address] Historical LMR Provider 03/08/17 2 documented as of this encounter Additional Source Comments The information contained in this document represents components of the legal health record. It is not the complete legal health record.[facility]
--- OUTSIDE RECORDS SUMMARY | 2025-02-17 12:54 | XMS_ITS | Clinical Summary ---
Author Organization [facility] Address [address] [place] [address] Phone Care Team Providers Care Chain Mortiser Operator Name Role Phone Nathalia Chen DO Unavailable Nathalia Chen DO Primary Care Provider [phone] Allergies Active Allergy Reactions Criticality Noted Date Comments Cat Hair Std Allergenic Ext Sneezing 04/05/20 19 Sneezing runny nose Egg GI Upset 01/01/2024 Other 01/01/2024 Medications RED YEAST RICE ORAL Take 2,400 mg by mouth daily. Active calcium carbonate (CALCIUM 600 ORAL) Take by mouth daily. Active lisinopril (PRINIVIL,ZESTR IL) 5 MG tablet Take 2.5 mg by mouth daily. Active magnesium aspart,citrate, oxide 400 mg magnesium Cap magnesium 400 mg Active calcium carbonate-vitam in D3 (CALCIUM 600 + D,3,) 1,500 mg (600 mg elemental)-200 units Tab 1 tablet with food Active ascorbic acid, vitamin C, (VITAMIN C) 1000 MG tablet daily. Activ e Active Problems Problem Noted Date Diagnosed Date Elevated blood-pressure read ing without diagnosis of hypertension 01/01/2024 Fibroid uterus 01/01/2024 Hypertension 01/01/2024 Mixed stress and urge urinary incontinence 12/31 Postmenopausal bleeding 01/01/2024 Vitamin D deficiency 03/02/2023 Impaired fasting glucose 03/19/2018 Hypocholesterolemia 08/26/2017 Immunizations No known immunizations Social History Tobacco Use Types Packs/Day Years Used Date Smoking Tobacco: Never Smokeless Tobacco: Never Tobacco Cessation:Counseling Given: Not Answered Alcohol Use Standard Drinks/Week Comments Yes 3 (1 standard drink = 0.6 oz pur e alcohol) daily x 2 Education Answer Date Recorded Are you interested in more education? Not on mary anne e 09/12/2022 Are you concerned about learning? Not on file 09/12/2022 No 09/12/2022 No 09/12/2022 Digital Access Answer Date Recorded No 10/13/2022 No 10/13/2022 Reliable internet access at home? Not on file 10/13/2022 Device with a working camera? Not on file Comments Unknown Sex and Gender Information Value Date Recorded Sex Assigned at Not on file Legal Sex Female 9:51 PM EDT Gender Identity Not on file Sexual Orientation Not on file Last Filed Vital Signs Vital Sign Reading Time Taken Comments Blood Pressure 129/70 01/01/2024 8:13 AM EDT Pulse 66 01/01/2024 8:13 AM EDT Temperature 36.8 C (98.3 F) 01/01/2024 8:13 AM EDT Respiratory Rate 16 01/01/2024 8:13 AM EDT Oxygen Saturation 96% 01/01/2024 8:13 AM EDT Inhaled Oxygen Concentration - - Weight 75.8 kg (167 lb) 04/05/2019 3:02 PM EST Height 162.6 cm (5' 4 ) 04/05/2019 3:02 PM EST Body Mass Index 28.67 04/05/2019 3:02 PM EST Plan of Treatment Upcoming Encounters Date Type Department Care Team (Late st Contact Info) Description 07/20/2025 3:00 PM EST Office Visit [facility] [address] [place] [address] [place] [address] Jesica Clement MD [address] [place] [address] [email or web address] Health Maintenance Due Date Last Done Comments CREATININE LEVEL 1957 LIPID PANEL 1957 POTASSIUM LEVEL 1957 DEPRESSION SCREENING 1969 HEPATITIS C SCREENING 09/17/1975 MAMMOGRAM 1997 COLOGUARD 2002 FIT TEST 2002 FOBT 2002 SIGMOIDOSCOPY 2002 VIRTUAL COLONOSCOPY 2002 PNEUMOCOCCAL VACCINES (50+ y ears) (1 of 1 - PCV) 09/17/2007 ZOSTER VACCINES (1 of 2) 09/17/2007 OSTEOPOROSIS SCREENING INITI AL (ONE-TIME) 2022 BLOOD PRESSURE 07/03/2024 01/01/2024 INFLUENZA VACCINE (#1) 2024 06/29/2019 COVID-19 VACCINE (1 - 2023-2 5 season) 2025 Adult Td,Tdap Booster 11/14/2025 11/15/2015 COLONOSCOPY 06/06/2029 06/06/2019 COLORECTAL CANCER SCREENING 06/06/2029 RSV VACCINE (1 - 1-dose 75+ series) 2032 SMOKING STATUS SCREENING (On ce After 26 Yrs) Completed 01/01/2024 HEPATITIS A VACCINES Aged Out No long er eligible based on patient's age to complete this topic HIB VACCINES Aged Out No longer eligi ble based on patient's age to complete this topic MENINGOCOCCAL VACCINES (ACWY) Aged Out No longer eligible based on patient's age to complete this topic MENINGOCOCCAL VACCINES (B) Aged Out N o longer eligible based on patient's age to complete this topic Medical Devices Not on file Procedures Procedure Name Priority Date/Time Associated Diagnosis Comments ENDOSCOPY, COLON 06/06/2019 9:23 AM EST from Last 3 Months or Most Recently Relevant to Health Maintenance Results * ENDOSCOPY, COLON (06/06/2019 9:23 AM EST) Narrative Transcriptions Duong Castillo MD - 06/06/2019 9:23 AM EST Patient Name: Dorys Stratton Attending MD:: DUONG CASTILLO MD, Procedure Date: 06/06/2019 9:23 AM Date of : 1955 Age: 63 Admit Type: Outpatient Gender: Female Room: [facility] Referring MD: NATHALIA CHEN DO Exam Type: Colonoscopy Indications: Screening for colorectal malignant neoplasm Medications: Monitored Anesthesia Care Procedure: Informed consent was obtained from the patient after discussion of the indications, limitations,alternatives, benefits, and risks of the procedure. Risksspecifically discussed include but are not limited to medication reactions, missed lesions, bleeding, perforation, orthe need for emergent surgery. Throughout the procedure, the patient's blood pressure, pulse, end-tidal CO2, and oxygen saturations were monitored continuously. The Olympus pediatric variable colonoscope [id number]-[id number] was introduced through the anus and advanced to thececum, identified by appendiceal orifice and ileocecal valve.The colonoscopy was performed without difficulty. Thepatient tolerated the procedure well. The quality of the bowel preparation was excellent. The quality of the bowel preparation was evaluated using the BBPS (Tingley Bowel Preparation Scale) with scores of: Right Colon = 3, Transverse Colon = 3 and Left Colon = 3 (entire mucosa seen well with no residual staining, small fragments of stool or opaque liquid). The total BBPS score equals9. Complications: No immediate complications. Estimated blood loss:Minimal. Findings: The perianal and digital rectal examinations werenormal. A 2 mm polyp was found in the ascending colon. Thepolyp was sessile. The polyp was removed with a cold biopsy forceps. Resection and retrieval were complete. A few small-mouthed diverticula were found in thesigmoid colon. Internal hemorrhoids were found during retroflexion.The hemorrhoids were mild. The exam was otherwise normal throughout the examined colon. Impression: - One 2 mm polyp in the ascending colon, removed with a cold biopsy forceps. Resected and retrieved. - Diverticulosis in the sigmoid colon. - Internal hemorrhoids. Recommendation: - Discharge patient to home. - Await pathology results. DUONG CASTILLO MD, 06/06/2019 9:44:23 AM This report has been signed electronically. Number of Addenda: 0 Note Initiated On: 06/06/2019 9:23 AM Procedure Code(s): --- Professional --- 72305, Colonoscopy, flexible; with biopsy, single or multiple --- Technical --- 61409, Colonoscopy, flexible; with biopsy, single or multiple Diagnosis Code(s): --- Professional --- Z12.11, Encounter for screening for malignant neoplasm of colon D12.2, Benign neoplasm of ascending colon K64.8, Other hemorrhoids K57.30, Diverticulosis of large intestine without perforation orabscess without bleeding --- Technical --- Z12.11, Encounter for screening for malignant neoplasm of colon D12.2, Benign neoplasm of ascending colon K64.8, Other hemorrhoids K57.30, Diverticulosis of large intestine without perforation orabscess without bleeding CPT copyright 2018 [employer]. All rights reserved. The codes documented in this report are preliminary and upon coil cleaner reviewmay be revised to meet current compliance requirements. Procedure Date: 06/06/2019 9:23:05 AM [address] [place] [address] us Nathalia Sisi Beata DO GI PROCEDURE ORDERABLES Final Re sult from Last 3 Months or Most Recently Relevant to Health Maintenance Insurance [facility] CHO[facility] Care Teams Chain Mortiser Operator Relationship Specialty Start Date End Date Nathalia Chen DO PCP - General Internal Medicine 01/10/19 Nathalia Chen DO Historical LMR Provider 03/08/17 Additional Source Comments The information contained in this document represents components of the legal health record. It is not the complete legal health record.[facility]
--- OUTSIDE RECORDS SUMMARY | 2025-02-17 12:54 | XMS_ITS | Encounter Summary ---
Author Organization [facility] Address [address] [place] [address] Phone Care Team Providers Care Marbleizing Machine Tender Name Role Phone Rebecahellen Hunter Laird DO Unavailable Estefania Hughes MD Unavailable [phone] Kathy Loya MD Unavailable + [phone] Lupe Anne NP Unavailable [phone] Hunter Cota DO Primary Care Provider [phone] Encounter Details Date Type Department Care Team (Late st Contact Info) Description 03/21/2019 Ancillary Orders Virtual Department [address] [place] [address] Catrina Sood PA-C [address] [place] [place] [address] Other primary ovarian failure; Decreased estrogen level Social History Tobacco Use Types Packs/Day Years [...] 3:00 PM EST Office Visit [facility] [address] [place] [address] [place] [address] Jesica Clement MD [address] [place] [address] documented as of this encounter Visit Diagnoses Diagnosis Other primary ovarian failure Decreased estrogen level documented in this encounter Additional Health Concerns Infection Onset Date Last Indicated Resolved Time CoV-Risk 01/01/2024 01/01/2024 01/12/2024 1:22 AM EDT documented as of this encounter Care Teams Marbleizing Machine Tender Relationship Specialty Start Date End Date Hunter Cota DO PCP - General Internal Medicine 01/10/19 Hunter Cota DO Historical LMR Provider 03/08/17 Estefania Hughes MD [address] [place] [address] [email or web address] Historical LMR Provider 03/08/17 Kathy Loya MD [address] [place] [phone] Historical LMR Provider 03/08/17 2 Lupe Anne NP [address] [place] [address] Historical LMR Provider 03/08/17 2 documented as of this encounter Additional Source Comments The information contained in this document represents components of the legal health record. It is not the complete legal health record.[facility]
--- OUTSIDE RECORDS SUMMARY | 2025-02-17 12:54 | XMS_ITS | Encounter Summary ---
Author Organization [facility] Address [address] [place] [address] Phone Care Team Providers Care Kiln Firer Name Role Phone Beata Hunter Laird DO Unavailable Estefania Hughes MD Unavailable [phone] Kathy Loya MD Unavailable + [phone] Lupe Anne NP Unavailable [phone] Hunter Cota DO Primary Care Provider [phone] Encounter Details Date Type Department Care Team (Late st Contact Info) Description 06/06/2019 Procedure Pass [facility] Endoscopy Admitting Dept Virtual Department [address] [place] [address] Social History Tobacco Use Types Packs/Day Years Used Date Smoking Tobacco: Never Smokeless Tobacco: Never Alcohol Use Standard Drinks/Week Comments Yes 3 (1 standard drink = 0.6 oz pur e alcohol) daily x 2 Comments Unknown Sex and Gender Information Value Date Recorded Sex Assigned at Not on file Legal Sex Female 9:51 PM EDT Gender Identity Not on file Sexual Orientation Not on file documented as of this encounter Plan of Treatment Upcoming Encounters Date Type Department Care Team (Late st Contact Info) Description 07/20/2025 3:00 PM EST Office Visit [facility] [address] [place] [address] Jesica Clement MD [address] [place] [address] documented as of this encounter Visit Diagnoses Not on filedocumented in this encounter Additional Health Concerns Infection Onset Date Last Indicated Resolved Time CoV-Risk 01/01/2024 01/01/2024 01/12/2024 1:22 AM EDT documented as of this encounter Care Teams Kiln Firer Relationship Specialty Start Date End Date Hunter Cota DO PCP - General Internal Medicine 01/10/19 Hunter Cota DO Historical LMR Provider 03/08/17 Estefania Hughes MD [address] [place] [address] Historical LMR Provider 03/08/17 Kathy Loya MD [address] [place] [address] Historical LMR Provider 03/08/17 2 Lupe Anne NP [address] [place] [address] Historical LMR Provider 03/08/17 2 documented as of this encounter Additional Source Comments The information contained in this document represents components of the legal health record. It is not the complete legal health record.[facility]
[2025-02-17 18:32] LABS: Alanine Aminotransferase 28 U/L (0-31); Albumin Level 4.5 g/dL (3.5-5.0); Alkaline Phosphatase 62 U/L (39-117); Anion Gap 12 (12-20); Aspartate Amino Transferase 22 U/L (5-31); Blood Urea Nitrogen 24 mg/dL (9-16); Calcium 9.7 mg/dL (8.4-10.2); Carbon Dioxide 28 mmol/L (22-29); Chloride 104 mmol/L (96-108); Estimated Glomerular Filt Rate > 60; Potassium 5.0 mmol/L (3.3-5.1); Sodium 139 mmol/L (135-145); Total Protein 7.2 g/dL (6.5-8.0)
[2025-02-17 19:04] LABS: Appearance Urine Clear; Glucose Urine UA Negative (Negative); PH 7.0 (5.0-9.0); Specific Gravity - Urine 1.010 (1.005-1.025); UMIC TRIGGER UA YES
[2025-02-17 20:11] LABS: Renal w Reflex Lab Use Only Order verified
== END 2025-02-17 11:55 | disposition home or self-care (01) ==
LOC: HO.MANLDS 11:54
PROVIDERS: Internal Medicine; Visit Provider Physician Assistant
DX: N94.5 Secondary dysmenorrhea (principal)
CPT/HCPCS: 36415; 80051; 80053; 81001; 81003; 82310; 82565; 84100; 84520